=== PATIENT | male | born 1970 | race Caucasian/White ===

== ENCOUNTER 2016-08-06 13:55 | Outpatient (CLI) | payer BC | END 2016-08-06 13:56 | disposition home or self-care (01) | DX: R09.89 Other specified symptoms and signs involving the circulatory and respiratory systems (principal); I51.7 Cardiomegaly ==

== ENCOUNTER 2016-08-11 08:16 | Outpatient (CLI) | payer BC | END 2016-08-11 08:17 | disposition home or self-care (01) | DX: I50.1 Left ventricular failure, unspecified (principal); I51.7 Cardiomegaly ==

== ENCOUNTER 2017-12-12 11:10 | Outpatient (CLI) | payer OTHER | END 2017-12-12 11:11 | disposition home or self-care (01) | LOC: DI 11:10 | PROVIDERS: ATTEND Internal Medicine | DX: I11.9 Hypertensive heart disease without heart failure (principal) | CPT/HCPCS: 93306 ==